=== PATIENT | male | born 1995 | race African-American/Black ===

== ENCOUNTER → 2018-06-20 | Outpatient (CLI) | payer BC, OTHER ==
[~2018-06-20] MED LIST: ONDA4TAB8 PO
--- NOTE | 2018-06-20 16:48 | Diagnostic Imaging Report ---
PROCEDURE: MRI right joint lower extremity without contrast. TECHNIQUE: Multiplanar, multisequence MR imaging of the right knee was performed without contrast. COMPARISON: None available. INDICATION: Knee pain after injury. FINDINGS: MENISCI Medial meniscus: Normal. Lateral meniscus: Normal. LIGAMENTS ACL: Complete tear of the ACL in its mid aspect. PCL: Intact. MCL: Intact. LCL: The lateral collateral ligamentous complex is intact. EXTENSOR MECHANISM Patellar tendon has partial-thickness tearing at its origin from the patella. CARTILAGE Medial compartment: Medial compartment articular cartilage is well preserved without focal high-grade chondromalacia. Lateral compartment: The lateral compartment articular cartilage is preserved without high-grade chondromalacia. Patellofemoral compartment: Full-thickness chondral fissure in the lateral patellar facet. BONE There are osseous kissing contusions involving the subchondral aspect of the central lateral femoral condyle and posterior lateral tibial plateau. A small amount of bone contusion is also present in the posterior aspect of the medial tibial plateau. SOFT TISSUE Moderate-sized knee joint effusion. No Russell's cyst. No features of posterolateral corner injury. IMPRESSION: 1. Complete ACL tear. 2. Associated bone contusions in the lateral femoral condyle and posterior aspect of the medial and lateral tibial plateaus. 3. No meniscal tear. 4. Focal full-thickness chondral fissuring in the lateral patellar facet. 5. Partial-thickness tear and tendinitis at the origin of the patellar tendon is likely subacute to chronic in nature and associated with jumper's knee. 6. Moderate-sized knee joint effusion. Dictated by: Dictated on workstation # [id number]
== END ==
LOC: RAD 13:05
PROVIDERS: ATTEND Orthopaedic Surgery
DX: S83.511A Sprain of anterior cruciate ligament of right knee, initial encounter (principal); S70.11XA Contusion of right thigh, initial encounter; S80.12XA Contusion of left lower leg, initial encounter; S76.111A Strain of right quadriceps muscle, fascia and tendon, initial encounter; M76.51 Patellar tendinitis, right knee
CPT/HCPCS: 73721